=== PATIENT | male | born 1970 | race Caucasian/White ===

== ENCOUNTER 2023-12-05 16:15 | Outpatient (CLI) | payer OTHER, SELFPAY | END 2023-12-05 16:16 | disposition home or self-care (01) | LOC: NFLDREF 12-20 12:09 | PROVIDERS: PCP Physician Assistant; Referring Provider Physician Assistant; Visit Provider Physician Assistant | DX: R35.0 Frequency of micturition (principal); N39.0 Urinary tract infection, site not specified; N41.0 Acute prostatitis | CPT/HCPCS: 87086; 87186 ==